=== PATIENT | male | born 1995 | race Caucasian/White ===

== ENCOUNTER 2019-09-17 22:09 | Emergency (ER) | payer OTHER ==
[~2019-09-17] VITALS: Ht 180.3 cm; Wt 65.8 kg
[2019-09-18] MEDS ORDERED: ZANTAC300 MG PO (03:55)
[2019-09-18] MEDS ORDERED: CIPRO500 MG PO (03:55)
== END 2019-09-18 03:56 | disposition home or self-care (01) ==
LOC: ER 22:09 → EMR PED 22:09 → ER 23:21
DX: K52.89 Other specified noninfective gastroenteritis and colitis (principal)